=== PATIENT | male | born 1985 | race Caucasian/White ===

== ENCOUNTER 2017-01-16 19:20 | Emergency (ER) | payer BC ==
[2017-01-16 19:42] VITALS: BP 125/72; PULSE 87; TEMP 98.4; BMI 25.3
--- NOTE | 2017-01-16 20:23 | PDOC ---
History of Present Illness - General Chief Complaint: Eye Problem Stated Complaint: EYE PROBLEM Time Seen by Provider: 01/16/17 19:56 History Source: Patient Exam Limitations: No Limitations - History of Present Illness Initial Comments: 01/16/17 20:19 CC 1 day of eye itching and light sensitivity post spark in right eye x 1 week ago at work Timing/Duration: 1 week Severity: moderate Associated Symptoms: denies: chest pain, cough, fever/chills Past History - Past Medical History Allergies/Adverse Reactions: Allergies Allergy/AdvReac Type Severity Reaction Status Date / Time No Known Allergies Allergy Verified 01/16/17 19:37 Home Medications: Ambulatory Orders NK [No Known Home Medication] 01/16/17 - Psycho/Social/Smoking Cessation Hx Smoking History: Never smoked Hx Alcohol Use: No Drug/Substance Use Hx: No Review of Systems - Review of Systems Constitutional: Yes: Fever, Malaise. No: Chills HEENTM: Yes: Eye Pain (eye itch, no pain), Tearing. No: Recent change in vision , Double Vision, Cataracts Respiratory: No: Cough *Physical Exam - Vital Signs Last Vital Signs Temp Pulse Resp BP Pulse Ox 98.4 F 87 20 125/72 97 01/16/17 19:39 01/16/17 19:39 01/16/17 19:39 01/16/17 19:39 01/16/17 19:39 - Physical Exam HEENT: positive: TMs Normal, Pharynx Normal, Pale Conjunctivae (irritation, injection) Medical Decision Making - Medical Decision Making 01/16/17 20:21 florecsin stain = no corneal abrasion; nl vision; no FB noted on magnification *DC/Admit/Observation/Transfer Diagnosis at time of Disposition: Conjunctivitis Qualifiers: Conjunctivitis type: acute Acute conjunctivitis type: bacterial Laterality: bilateral Qualified Code(s): H10.33 - Unspecified acute conjunctivitis, bilateral - Discharge Dispostion Disposition: HOME Condition at time of disposition: Stable Admit: No - Patient Instructions Additional Instructions: Please see local eye MD in 2 days for reexam - Post Discharge Activity Work/School Note: Back to Work
== END 2017-01-16 20:28 | disposition home or self-care (01) ==
LOC: JERFT 19:20
DX: H10.33 Unspecified acute conjunctivitis, bilateral (principal)
CPT/HCPCS: 99281-25

== ENCOUNTER 2020-05-21 10:05 | Day surgery (SDC) | payer BC, OTHER ==
[2020-05-15 11:01] VITALS: BMI 24.4
[2020-05-21 13:00] VITALS: BP 126/78; PULSE 71; TEMP 97.7
== END 2020-05-21 13:00 | disposition home or self-care (01) ==
LOC: FASU-ENDO 10:05
PROVIDERS: ATTEND Internal Medicine Gastroenterology
PROC: 0DBL8ZX Excision of Transverse Colon, Via Natural or Artificial Opening Endoscopic, Diagnostic (ICD-10-PCS; 2020-05-21)
PROC: 0DBP8ZX Excision of Rectum, Via Natural or Artificial Opening Endoscopic, Diagnostic (ICD-10-PCS; 2020-05-21)
PROC: 0DBM8ZX Excision of Descending Colon, Via Natural or Artificial Opening Endoscopic, Diagnostic (ICD-10-PCS; 2020-05-21)
PROC: 0DBK8ZX Excision of Ascending Colon, Via Natural or Artificial Opening Endoscopic, Diagnostic (ICD-10-PCS; principal; 2020-05-21 11:19)
DX: R19.7 Diarrhea, unspecified (principal); K64.1 Second degree hemorrhoids; K63.89 Other specified diseases of intestine
CPT/HCPCS: 88305-TC